=== PATIENT | female | born 1945 | race Two or more races ===

== ENCOUNTER 2023-01-29 17:45 | Emergency (ER) | payer MEDICARE, MEDICAID ==
[~2023-01-29] VITALS: Ht 167.6 cm; Wt 90.9 kg
[2023-01-29 19:01] VITALS: BP 124/62
== END 2023-01-29 19:06 | disposition home or self-care (01) ==
LOC: ER 17:45 → EDBD 17:45 → ER 19:06
DX: R41.82 Altered mental status, unspecified (principal); Z91.83 Wandering in diseases classified elsewhere